=== PATIENT | male | born 1990 | race Caucasian/White ===

== ENCOUNTER → 2021-07-14 | Outpatient (CLI) | payer BC, SELFPAY | END | disposition home or self-care (01) | PROVIDERS: PCP Family Medicine; Visit Provider Family Medicine | DX: U07.1 COVID-19 (principal) | CPT/HCPCS: 87635; U0005; U0003 ==

== ENCOUNTER 2022-10-31 10:55 | Observation (INO) | payer BC, SELFPAY ==
[2022-10-31] VITALS (13 sets, daily range): BP systolic 116–138; BP diastolic 78–92; PULSE 64–98; RESP 12–20; TEMP 36.6; O2SAT 98–100; BMI 25.7; BMI 23.1
--- NOTE | 2022-10-31 10:57 | NURSING ---
NO OLD EKGS
--- NOTE | 2022-10-31 11:05 | ED.VIS.CHEST ---
HPI History of Present Illness Chief Complaint: Chest Pain Onset/Context/Timing Onset: Today and Hours (1) Activity at onset: sudden Timing: Continuous Quality: Positive for Aching, Sharp and Tightness Location: Left Chest and - (Neck and left arm) Worsened By: Exertion (Walking) Relieved By: Nothing Associated Symptoms: Positive for Dyspnea, Lightheadedness and Palpitations; Negative for Nausea, Vomiting, Diaphoresis, Cough, Fever or Acid Reflux Narrative Narrative: Patient presents with chest pain that began approxi-1 hour prior to arrival. Patient states it came on rather suddenly. Patient states it has been constant. Patient describes it as sharp and aching. Patient states pain radiates into his left arm and into the left side of his neck. Patient states the pain in his arm feels like a tightness. Patient states it is worse with exertion. Patient states nothing seems to help with it. Patient does admit to some shortness of breath with this. Patient also admits to some recent travel in a car to [place]. Patient admits to some palpitations and lightheadedness. CVD Risk Factors: Negative for Hypertension, Diabetes, Hypercholesterolemia, Family History 1' </=55 or Smoking PE Risk Factors: Positive for Recent Travel/Surgery; Negative for Recent Immobilization, Prior DVT or PE or Cancer [facility] Medical History Arm pain Home Medications NK 10/31/22 [History Last Taken Unknown] Allergy/AdvReac Type Severity Reaction Status Date / Time No Known Allergies Allergy Verified 10/31/22 10:58 Surgical History no surgical history no surgical history Social History Smoking Status: Never smoker ROS ROS ED Constitutional Constitutional ED: Denies chills or fever(s) Eyes Eyes: Denies blurry vision or change in vision ENT ENT ED: Denies rhinorrhea or sore throat Cardiovascular Cardiovascular: Reports chest pain and palpitations Respiratory/Chest Respiratory/Chest: Reports dyspnea; Denies cough Gastrointestinal Gastrointestinal: Denies abdominal pain, nausea or vomiting Genitourinary Genitourinary ED: Denies dysuria or hematuria Musculoskeletal Musculoskeletal: Reports neck pain; Denies back pain Integumentary Denies abscess or rash Neurologic Neurologic: Denies headache(s) or weakness Allergic/Immunologic Allergic/Immunologic ED: Denies mouth swelling or urticaria EXAM Physical Exam Const Vital Signs: 10/31/22 10:59 10/31/22 11:03 10/31/22 11:59 Temperature 97.9 F Temperature Source Oral Pulse Rate 87 Respiratory Rate 18 12 Blood Pressure 138/92 H Blood Pressure Mean 107 Pulse Ox 99 99 Oxygen Delivery Method Room Air Room Air Oxygen Flow Rate (L/min) 10/31/22 12:00 10/31/22 13:00 10/31/22 14:00 Temperature Temperature Source Pulse Rate 67 98 80 Respiratory Rate 16 14 20 H Blood Pressure 119/79 128/84 H 116/79 Blood Pressure Mean 92 98 91 Pulse Ox 98 100 100 Oxygen Delivery Method Room Air Non-Rebreather Non-Rebreather Oxygen Flow Rate (L/min) 10 10 10/31/22 15:31 Temperature Temperature Source Pulse Rate 69 Respiratory Rate 20 H Blood Pressure 127/78 H Blood Pressure Mean 94 Pulse Ox 100 Oxygen Delivery Method Non-Rebreather Oxygen Flow Rate (L/min) 10 Positive well nourished and well developed General Appearance ED: well developed and NAD HEENT normocephalic and atraumatic Eyes PERRL and EOMs intact bilaterally Neck supple and no JVD Chest Wall palpation of chest normal Chest: Negative for tenderness Resp normal respiratory effort and clear to auscultation bilaterally Effort and Inspection: Negative for respiratory distress Cardio regular rate, regular rhythm and no murmurs GI normal to inspection, nondistended, normoactive bowel sounds, soft to palpation, non-tender and non-distended Extremity normal to inspection General Extremety ED: Negative for edema or tenderness General Extremity: Negative for edema Neuro oriented x3, CN's II-XII intact bilaterally and no sensory deficits noted Sensorium / Orientation: awake and alert Motor Exam: strength 5/5 throughout Psych mental status grossly normal Heart Score History: Moderately Suspicious ECG: Normal Age: </= 45 years Risk Factors: No Risk Factors Score: 1 MDM MDM MDM Narrative Medical decision making narrative: Differential diagnosis includes cardiac dysrhythmia, cardiac ischemia, pneumonia, pneumothorax, aortic dissection, pulmonary embolism, pericarditis, and musculoskeletal chest pain. EKG will be obtained to assess for cardiac dysrhythmia and cardiac ischemia. Chest x-ray will be obtained to assess for pneumonia and pneumothorax. CBC will be obtained to assess for leukocytosis and anemia. Basic metabolic profile will be obtained to assess for electrolyte abnormality and renal function. High-sensitivity troponin will be obtained to assess for cardiac ischemia. D-dimer will be obtained to assess for pulmonary embolism. Lab Data Attestation: I reviewed the patient's lab results. Lab results narrative: CBC was reviewed and was within normal limits. Basic metabolic profile was reviewed and was within normal limits. High-sensitivity troponin was normal at 4. 2-hour repeat high-sensitivity troponin was normal at 3. Labs: Laboratory Results - last 24 hr 10/31/22 10/31/22 10/31/22 11:00 11:00 13:36 WBC 9.3 RBC 5.13 Hgb 15.8 Hct 47.4 MCV 92.4 MCH 30.8 MCHC 33.3 RDW Std Deviation 41.4 RDW Coeff of Trina 12.1 Plt Count 287 MPV 11.2 Immature Gran % (Auto) 0.300 Neut % (Auto) 59.0 Lymph % (Auto) 32.8 [place] % (Auto) 6.5 Eos % (Auto) 1.0 Baso % (Auto) 0.4 Absolute Neuts (auto) 5.5 Absolute Lymphs (auto) 3.06 Nucleated RBC % 0 Sodium 137 Potassium 3.9 Chloride 103 Carbon Dioxide 31.0 Anion Gap 3 L BUN 11 Creatinine 0.81 Estim Creat Clear Calc 146.36 Est GFR (MDRD) Af Amer 144 Est GFR (MDRD) Non-Af 119 BUN/Creatinine Ratio 13.6 Glucose 124 H Calcium 9.5 Troponin I High Sens 4 3 Radiography Chest X-Ray - ED: 1 View, Read by ED Physician, Read by Radiologist and - (There is a left apical pneumothorax noted.) Diagnostic Testing: Clinical Impression(s) from Imaging Studies Chest X-Ray 10/31/22 11:30 IMPRESSION: There is a 5% left apical pneumothorax. Electronically Signed: Nathan De Santiago MD at 11:53 EDT , Chest X-Ray 10/31/22 13:45 IMPRESSION: Stable small left apical pneumothorax. Electronically Signed: Nathan De Santiago MD at 14:06 EDT , Portable 1 view chest x-ray was obtained. On my independent interpretation, lung pearson are clear. There is a left apical pneumothorax. There is normal cardiac silhouette. Bony thorax is normal. There is no acute process noted. Radiologist also interpreted the x-ray and agrees. After the patient had been on a nonrebreather mask for an hour, repeat portable chest x-ray was obtained. On my independent interpretation, the lung pearson are clear however there is still a left apical pneumothorax that is essentially unchanged from previous x-ray. EKG Initial EKG: Attestation: I personally reviewed and interpreted this EKG as follows: Interpretation: Sinus Rhythm (82), No Acute Injury Pattern and LAFB Comments: EKG was obtained. On my independent interpretation, it showed a normal sinus rhythm with a rate of 82. MO interval, QRS interval, and QTc intervals were all normal. There is left axis deviation at -77. There are no acute ST or T wave changes. There is a left anterior fascicular block. Prior EKG tracings: not available for review Prior: No Prior Treatment and Re-Evaluation :: Patient was advised of his findings. Case was discussed with Dr. Grimes. She recommended repeating the chest x-ray 1 hour after starting patient on oxygen. This was obtained. There is no change in the pneumothorax. I discussed the case again with Dr. Grimes. She recommended placing a small thoracostomy tube. She will admit the patient for observation. Patient was advised of the risks and benefits of the tube thoracostomy. Patient is agreeable with this. Patient was given the opportunity ask questions. No further questions. The left upper chest was prepped and draped in a sterile manner. The area was anesthetized 1% plain lidocaine locally. A small skin incision was made using an 11 blade scalpel. An 8 Citizen [place] tube was inserted over a needle into the thoracic cavity over the top of the second rib. Good air was returned. The tube was fed into the thoracic cavity. The needle was withdrawn. More air was able to be aspirated after the tube was in place. The tube was attached to a Heimlich valve while the tube was sutured in place. An OpSite dressing was applied. Patient tolerated procedure well. After the tube was sutured in place and a dressing was applied the Heimlich valve was removed and the tube was connected to Thoraclex suction. There were air bubbles noted to be in the Thoraclex system. Patient tolerated the procedure well. Patient will be admitted to the hospital. Patient understood and was agreeable with the plan. All questions were answered. Procedures Other Procedures Procedure(s): Chest tube placement Patient was advised of the risks and benefits of the tube thoracostomy. Patient is agreeable with this. Patient was given the opportunity ask questions. No further questions. The left upper chest was prepped and draped in a sterile manner. The area was anesthetized 1% plain lidocaine locally. A small skin incision was made using an 11 blade scalpel. An 8 Citizen [place] tube was inserted over a needle into the thoracic cavity over the top of the second rib. Good air was returned. The tube was fed into the thoracic cavity. The needle was withdrawn. More air was able to be aspirated after the tube was in place. The tube was attached to a Heimlich valve while the tube was sutured in place. An OpSite dressing was applied. Patient tolerated procedure well. After the tube was sutured in place and a dressing was applied the Heimlich valve was removed and the tube was connected to Thoraclex suction. There were air bubbles noted to be in the Thoraclex system. Patient tolerated the procedure well. Discharge Plan Triage Chief Complaint: Chest Pain ED Provider: Nestor Vasques Dx/Rx/DC Orders Clinical Impression: Pneumothorax on left Prescriptions: No Action NK Primary Care Provider: Willian Mark Referrals: Willian Mark MD [Primary Care Provider] - Disposition Disposition: Acute Care [facility]
[2022-10-31] MEDS: Aspirin 81 MG TAB.CHEW 324 MG PO (11:25)
[2022-10-31 11:29] LABS: Absolute Lymphocyte Count 3.06 X10^3/uL (0.83-4.51); Absolute Neutrophil Count 5.5 X10^3/uL (2.0-7.7); Basophil# 0.04 X10^3/uL; Basophil% 0.4 % (0-1); Eosinophil# 0.09 X10^3/uL; Hematocrit 47.4 % (40-54); Hemoglobin 15.8 g/dL (13.0-16.5); Lymphocyte # 3.06 X10^3/ul (0.83-4.51); Lymphocyte % 32.8 % (19-41); Mean Corp Hgb Conc 33.3 g/dL (32-36); Mean Corpuscular Hgb 30.8 pg (27.0-32.0); Mean Corpuscular Volume 92.4 fL (80-94); Mean Platelet Vol. 11.2 fl (6.2-12.0); Monocyte# 0.61 X10^3/uL; Monocyte% 6.5 % (0-10); NRBC Flagged by Analyzer 0 % (0-5); Platelet Count 287 K/mm3 (150-450); RBC Distribution Width CV 12.1 % (11.6-14.6); RBC Distribution Width SD 41.4 fl (35.1-43.9); Red Blood Count 5.13 M/mm3 (4.6-6.2); White Blood Count 9.3 K/mm3 (4.4-11.0)
--- NOTE | 2022-10-31 11:30 | RAD_ITS ---
STUDY: X-RAY CHEST REASON FOR EXAM: Male, 32 years old. Chest pain TECHNIQUE: Single AP portable view of the chest. COMPARISON: None. FINDINGS: EKG electrodes are seen. 5% left apical pneumothorax. There is no demonstrated pleural abnormality. Normal size heart. Normal mediastinum and quintin. Normal visualized pulmonary arteries. Normal visualized aortic arch and descending thoracic aorta. Normal visualized thoracic spine. Normal visualized ribs, clavicles, and shoulders. There is no demonstrated abnormality of the visualized soft tissue structures of the upper abdomen. RAD/Chest 1 View (Portable) IMPRESSION: There is a 5% left apical pneumothorax. Electronically Signed: Nathan De Santiago MD at 11:53 EDT ,
[2022-10-31 11:45] LABS: Anion Gap 3 (5-15); BUN 11 mg/dL (7-18); BUN/Creat Ratio 13.6 RATIO (10-20); Calcium,Total 9.5 mg/dL (8.5-10.1); Chloride 103 mmol/L (98-107); Creatinine, Serum 0.81 mg/dL (0.70-1.30); EST Glomerular Filtration Rate 119 mL/min (>60); Est Glom Filt Rate - Afr Amer 144 mL/min (>60); Estimated Creatinine Clearance 146.36 ml/min; Glucose 124 mg/dL (74-106); Potassium 3.9 mmol/L (3.5-5.1); Sodium Level 137 mmol/L (136-145); Troponin-I HS (w/2H Reflex) 4 pg/mL (3.0-78.0)
--- NOTE | 2022-10-31 11:59 | ED.RN ---
Patient denies chest pain at this time.
[2022-10-31 13:25] LABS: Reflex Troponin-HS? (from REC) Y
--- NOTE | 2022-10-31 13:45 | RAD_ITS ---
STUDY: X-RAY CHEST REASON FOR EXAM: Male, 32 years old. Pneumothorax TECHNIQUE: Single AP portable view of the chest. COMPARISON: Comparison is made with prior study done earlier in the day. FINDINGS: EKG electrodes are seen. Stable small left apical pneumothorax. RAD/Chest 1 View (Portable) IMPRESSION: Stable small left apical pneumothorax. Electronically Signed: Nathan De Santiago MD at 14:06 EDT ,
[2022-10-31 14:08] LABS: Troponin-I HS 3 pg/mL (3.0-78.0)
--- NOTE | 2022-10-31 14:54 | PCM.HP.STD ---
HPI - General General Date of Admission: 10/31/22 Date of Service: 10/31/22 HPI Narrative JERILYN SEGOVIA, is a 32 M who presents to the ER due to left chest pain starting this morning while patient was sitting at his desk. Pt cardiac w/u was negative except CXR showed small L apical PTX. Pt pain improved after getting asa in ER; never had hx of similar pain, denies any strenous activity prior to the pain. no hx of previous PTX- denies smoking of any kind. Percutaneous left CT was placed by ER- CXR pending. [facility] Medical History Arm pain Home Medications NK 10/31/22 [History Last Taken Unknown] Allergy/AdvReac Type Severity Reaction Status Date / Time No Known Allergies Allergy Verified 10/31/22 10:58 Surgical History no surgical history Social History Smoking Status: Never smoker ROS Constitutional Constitutional: Denies anorexia or fever(s) Cardiovascular Cardiovascular: Reports chest pain and chest pain at rest Respiratory/Chest Respiratory/Chest: Denies cough or shortness of breath at rest Gastrointestinal Gastrointestinal: Denies abdominal pain, diarrhea, nausea or vomiting Genitourinary Genitourinary: Denies difficulty urinating Musculoskeletal Musculoskeletal: Denies back pain Neurologic Neurologic: Denies focal weakness Hematologic/Lymphatic Hematologic/Lymphatic: Denies easy bleeding Vital Signs Vital Signs Vital Signs: 10/31/22 10:59 10/31/22 11:03 10/31/22 11:59 Temperature 97.9 F Temperature Source Oral Pulse Rate 87 Respiratory Rate 18 12 Blood Pressure 138/92 H Blood Pressure Mean 107 Pulse Ox 99 99 Oxygen Delivery Method Room Air Room Air Oxygen Flow Rate (L/min) 10/31/22 12:00 10/31/22 13:00 10/31/22 14:00 Temperature Temperature Source Pulse Rate 67 98 80 Respiratory Rate 16 14 20 H Blood Pressure 119/79 128/84 H 116/79 Blood Pressure Mean 92 98 91 Pulse Ox 98 100 100 Oxygen Delivery Method Room Air Non-Rebreather Non-Rebreather Oxygen Flow Rate (L/min) 10 10 Weight Weight: 190 lb 0.615 oz Body Mass Index (BMI) 25.7 Physical Exam Const oriented x3 and no apparent distress Resp normal respiratory effort and clear to auscultation bilaterally Resp Narrative: Left anterior percutaneous CT in place- no leak to -20 on pleurovac. Cardio regular rate GI soft to palpation and non-tender Inspection: Negative for abdominal distention Extremity normal to inspection Results Lab / Micro Data Result Diagrams: 10/31/22 11:00 10/31/22 11:00 Labs: Laboratory Results - last 24 hr 10/31/22 11:00: WBC 9.3, RBC 5.13, Hgb 15.8, Hct 47.4, MCV 92.4, MCH 30.8, MCHC 33.3, RDW Std Deviation 41.4, RDW Coeff of Trina 12.1, Plt Count 287, MPV 11.2, Immature Gran % (Auto) 0.300, Neut % (Auto) 59.0, Lymph % (Auto) 32.8, [place] % (Auto) 6.5, Eos % (Auto) 1.0, Baso % (Auto) 0.4, Absolute Neuts (auto) 5.5, Absolute Lymphs (auto) 3.06, Nucleated RBC % 0 10/31/22 11:00: Sodium 137, Potassium 3.9, Chloride 103, Carbon Dioxide 31.0, Anion Gap 3 L, BUN 11, Creatinine 0.81, Estim Creat Clear Calc 146.36, Est GFR (MDRD) Af Amer 144, Est GFR (MDRD) Non-Af 119, BUN/Creatinine Ratio 13.6, Glucose 124 H, Calcium 9.5, Troponin I High Sens 4 10/31/22 13:36: Troponin I High Sens 3 Radiology Impression Chest X-Ray 10/31/22 11:30 IMPRESSION: There is a 5% left apical pneumothorax. Electronically Signed: Nathan De Santiago MD at 11:53 EDT , Chest X-Ray 10/31/22 13:45 IMPRESSION: Stable small left apical pneumothorax. Electronically Signed: Nathan De Santiago MD at 14:06 EDT , Assessment & Plan Assessment/Plan (1) Pneumothorax on left: PLAN: Plan Reviewed CXR with pt and parents- also personally reviewed. CXR s/p CT shows good expansion of lung; no leak continue to -20 tonight and will check CXR in AM and waterseal if still expanded/no leak. d/w pt and his parents-they had no further questions at this time. Charges/Coding Visit Charges Inpatient E&M: 32294 Init Hosp L3
--- NOTE | 2022-10-31 16:18 | NURSING ---
MED SURG OBS [place] LEFT PNEUMOTHORAX
--- NOTE | 2022-10-31 16:38 | RAD_ITS ---
INDICATION: Chest tube placement EXAMINATION/TECHNIQUE: X-RAY - portable upright AP chest x-ray COMPARISON: 10/31/2022 at 1:46 PM FINDINGS: Interval placement left-sided chest tube with the tip at the left apex. Evacuation of the small left pneumothorax with minimal residual apical pneumothorax visible. RAD/Chest 1 View (Portable) IMPRESSION: Near total evacuation of the small left apical pneumothorax status post left-sided chest tube placement. Electronically Signed: Lanre Marshall MD at 17:34 EDT ,
[2022-11-01 02:00] VITALS: BP 113/75; PULSE 62; RESP 16; TEMP 36.8; O2SAT 98
--- NOTE | 2022-11-01 05:55 | RAD_ITS ---
INDICATION: left PTX s/p CT EXAMINATION/TECHNIQUE: X-RAY - XR Chest 1 View COMPARISON: 10/31/22. FINDINGS: LINES/DEVICES: Left upper chest small caliber thoracostomy tube remains in place. LUNGS:Trace sliver of pneumothorax at the extreme left lung apex.. No consolidation, edema or effusion. No right pneumothorax. MEDIASTINUM AND CARDIOVASCULAR STRUCTURES: Cardiac silhouette not enlarged. BONES AND SOFT TISSUES: Unremarkable. RAD/Chest 1 View IMPRESSION: Trace left apical pneumothorax with thoracostomy tube remaining in place. Electronically Signed: Henry Figueredo MD at 8:46 EDT ,
[2022-11-01 07:50] VITALS: O2SAT 96
[2022-11-01 08:00] VITALS: BP 114/70; PULSE 82; RESP 16; TEMP 36.4; O2SAT 100
[2022-11-01 08:37] VITALS: BP 137/83; PULSE 68; RESP 18; TEMP 36.7; O2SAT 100
--- NOTE | 2022-11-01 08:42 | PN.SURG_ITS ---
Subjective Subjective no complains, CXR still shows lungs expanded, no leak Objective Data Objective Data Vital Signs: Vital Signs Temp Pulse Resp BP Pulse Ox O2 Del Method O2 Flow Rate 98.1 F 68 18 137/83 H 100 Nasal Cannula 2 11/01/22 08:37 11/01/22 08:37 11/01/22 08:37 11/01/22 08:37 11/01/22 08:37 11/01/22 08:37 11/01/22 08:37 Oxygen Flow Rate (L/min) 2 Oxygen Delivery Method Nasal Cannula Weight: 185 lb 3.013 oz Body Mass Index (BMI) 23.1 Intake & Output: Intake and Output for Last 24 Hours 10/30/22 10/31/22 11/01/22 23:59 23:59 23:59 Intake Total 200 / 200 Balance 200 / 200 Lab / Micro Data Result Diagrams: 10/31/22 11:00 10/31/22 11:00 Labs: Laboratory Results - last 24 hr 10/31/22 11:00: WBC 9.3, RBC 5.13, Hgb 15.8, Hct 47.4, MCV 92.4, MCH 30.8, MCHC 33.3, RDW Std Deviation 41.4, RDW Coeff of Trina 12.1, Plt Count 287, MPV 11.2, Immature Gran % (Auto) 0.300, Neut % (Auto) 59.0, Lymph % (Auto) 32.8, [place] % (Auto) 6.5, Eos % (Auto) 1.0, Baso % (Auto) 0.4, Absolute Neuts (auto) 5.5, Absolute Lymphs (auto) 3.06, Nucleated RBC % 0 10/31/22 11:00: Sodium 137, Potassium 3.9, Chloride 103, Carbon Dioxide 31.0, Anion Gap 3 L, BUN 11, Creatinine 0.81, Estim Creat Clear Calc 146.36, Est GFR (MDRD) Af Amer 144, Est GFR (MDRD) Non-Af 119, BUN/Creatinine Ratio 13.6, Glucose 124 H, Calcium 9.5, Troponin I High Sens 4 10/31/22 13:36: Troponin I High Sens 3 Radiography Diagnostic Testing: Radiology Impression Chest X-Ray 10/31/22 11:30 IMPRESSION: There is a 5% left apical pneumothorax. Electronically Signed: Nathan De Santiago MD at 11:53 EDT , Chest X-Ray 10/31/22 13:45 IMPRESSION: Stable small left apical pneumothorax. Electronically Signed: Nathan De Santiago MD at 14:06 EDT , Chest X-Ray 10/31/22 16:38 IMPRESSION: Near total evacuation of the small left apical pneumothorax status post left-sided chest tube placement. Electronically Signed: Lanre Marshall MD at 17:34 EDT , Physical Exam Const oriented x3 and no apparent distress Resp normal respiratory effort Resp Narrative: left anterior CT in place- no leak Cardio regular rate GI soft to palpation and non-tender Assessment & Plan Assessment/Plan (1) Pneumothorax on left: PLAN: Plan Patient's repeat chest x-ray did not this morning did not show a pneumothorax. Patient was placed on waterseal at 7 AM we will check a chest x-ray in 6 hours if still reexpanded would plan to remove and check another 1 in 2 hours. Patient is agreeable plan. Ellen Grimes M.D. Pager: [phone] [facility] [address] [place] [address], [address], [address] [place] [address] Office: [phone] Charges/Coding Visit Charges Inpatient E&M: 30160 Subs Hosp L3
--- NOTE | 2022-11-01 13:00 | RAD_ITS ---
STUDY: X-RAY CHEST REASON FOR EXAM: Male, 32 years old. Left pneumothorax TECHNIQUE: Single AP portable view of the chest. COMPARISON: Earlier today FINDINGS: Stable appearance of a small caliber left-sided chest tube. There remains a tiny left apical pneumothorax without change since the previous study, no mediastinal shift. The lungs are otherwise clear and expanded. There is no demonstrated pleural abnormality. Normal size heart. Normal mediastinum and quintin. Normal visualized pulmonary arteries. Normal visualized aortic arch and descending thoracic aorta. Normal visualized thoracic spine. Normal visualized ribs, clavicles, and shoulders. There is no demonstrated abnormality of the visualized soft tissue structures of the upper abdomen. RAD/Chest 1 View IMPRESSION: Persistent stable tiny apical left pneumothorax despite the presence of the left chest tube. No interval change since the previous study Electronically Signed: Bobby Meyer MD at 13:44 EDT ,
[2022-11-01 14:15] VITALS: BP 108/75; PULSE 69; RESP 16; TEMP 36.5; O2SAT 98
--- NOTE | 2022-11-01 14:28 | DCINST_ITS ---
Discharge Instructions Diet Discharge Diet: No restrictions Activity Discharge Activity: - (No strenuous activity for 1 week) Lifting Restrictions: 10 pounds Dressing / Incision Call your doctor if you observe: Shortness of breath Remove Dressing in: 2 days Follow Up Care Please Follow Up With: Ellen Grimes MD When: 1 week Test Results: Test results from this visit will be discussed in further detail at your follow- up appointment, if applicable. Discharge Plan Admission Admit Date/Time: 10/31/22 14:49 Primary Reason for Your Visit: Left pneumothorax Attending Provider: Ellen Grimes Primary Care Provider: Willian Mark Instructions Additional Instructions / Restrictions: Leave op-site dressing in place for 2 days You may shower over top of the dressing No strenuous activity until after your follow-up Please contact our office to schedule a follow-up appointment with Dr. Grimes for 1 week from discharge Contact our office if you note increase of shortness of breath Discharge Orders/Prescriptions Prescriptions: Continued NK Referrals / Follow Up: Willian Mark MD [Primary Care Provider] - Ellen Grimes MD [Med Staff - Active Staff] - 11/08/22 (Please call our office for a 1 week follow-up) Disposition Disposition (needs filled in before D/C Order can be placed): Home, Self Care
--- NOTE | 2022-11-01 16:05 | RAD_ITS ---
INDICATION: Left pneumothorax EXAMINATION/TECHNIQUE: X-RAY - portable upright AP chest x-ray COMPARISON: 11/01/2022 at 12:59 PM FINDINGS: Interval removal left-sided chest tube. Tiny left apical pneumothorax unchanged. RAD/Chest 1 View IMPRESSION: Stable tiny residual left apical pneumothorax status post chest tube removal. Electronically Signed: Lanre Marshall MD at 17:30 EDT ,
[2022-11-01 18:14] VITALS: PULSE 78; RESP 18; O2SAT 100
== END 2022-11-01 18:27 | disposition home or self-care (01) ==
LOC: ED 16:13 → MS3 16:55
PROVIDERS: Admitting Provider Surgery; Emergency Provider Emergency Medicine; PCP Family Medicine; Visit Provider Surgery
DX: J93.9 Pneumothorax, unspecified (principal)
CPT/HCPCS: 99285; 32551; 71045; 80048; 84484; 85025; 93005; 99221; G0378

== ENCOUNTER → 2024-05-19 | Outpatient (CLI) | payer BC, SELFPAY ==
[2024-05-19 15:55] LABS: Anion Gap 5 (5-15); BUN 14 mg/dL (7-18); BUN/Creat Ratio 17.3 RATIO (10-20); Calcium,Total 9.4 mg/dL (8.5-10.1); Chloride 102 mmol/L (98-107); Cholesterol 190 mg/dL (200); Creatinine, Serum 0.81 mg/dL (0.70-1.30); EST Glomerular Filtration Rate 118 mL/min (>60); Est Glom Filt Rate - Afr Amer 142 mL/min (>60); Glucose 95 mg/dL (74-106); High Density Lipoprotein 34 mg/dL; Sodium Level 134 mmol/L (136-145); Triglycerides 296 mg/dL; Very Low Density Lipoprotein 59 mg/dL (5-40)
== END | disposition home or self-care (01) ==
PROVIDERS: PCP Family Medicine; Visit Provider Family Medicine
DX: Z00.00 Encounter for general adult medical examination without abnormal findings (principal); Z13.1 Encounter for screening for diabetes mellitus; Z13.220 Encounter for screening for lipoid disorders; Z83.49 Family history of other endocrine, nutritional and metabolic diseases
CPT/HCPCS: 36415; 80048; 80061; 84443